=== PATIENT | male | born 1965 | race Caucasian/White ===

== ENCOUNTER 2017-11-27 16:40 | Emergency (ER) | payer OTHER ==
[~2017-11-27] VITALS: Ht 175.3 cm; Wt 117.8 kg
[2017-11-27 18:58] LABS: CHLORIDE 105 mEq/L (99-109); POTASSIUM 4.1 mEq/L (3.7-5.4); SODIUM 141 mEq/L (136-147)
[2017-11-27 19:00] LABS: GLUCOSE 91 mg/dL (70-99)
[2017-11-27 19:04] LABS: CREATININE 0.9 mg/dL (0.6-1.3); GFR ESTIMATE (CALCULATED) > 59 mL/min/ (58.99-99999); UREA NITROGEN (BUN) 14 mg/dL (9-23)
[2017-11-27] MEDS ORDERED: NORCO 5/3251 TABLET PO (20:52)
[2017-11-27 21:48] VITALS: BP 132/86
== END 2017-11-27 21:49 | disposition home or self-care (01) ==
LOC: EME 16:40
PROVIDERS: Physician Assistant
DX: S22.32XA Fracture of one rib, left side, initial encounter for closed fracture (principal); W00.0XXA Fall on same level due to ice and snow, initial encounter; Y92.008 Other place in unspecified non-institutional (private) residence as the place of occurrence of the external cause; M25.572 Pain in left ankle and joints of left foot; M25.531 Pain in right wrist; M10.9 Gout, unspecified; I10 Essential (primary) hypertension; J45.909 Unspecified asthma, uncomplicated
CPT/HCPCS: 71260; 74177; 80048; 99281; 99285; J2270; J7040